=== PATIENT | female | born 1990 | race Caucasian/White ===

== ENCOUNTER 2016-12-19 21:16 | Emergency (ER) | payer SELFPAY ==
[2016-12-19 22:55] LABS: Bilirubin,Urine NEG (Negative); Blood,Urine NEG (Negative); Ketones,Urine NEG (Negative); Leukocyte Esterase,Urine LG (Negative); Mucus,Urine 3+ /HPF; Nitrite,Urine NEG (Negative); Urobilinogen,Urine < 2.0 mg/dL (<2.0)
[2016-12-20] MEDS ORDERED: MOTRIN PO ONE (02:41)
[2016-12-20] MEDS ORDERED: BACTRIM DS PO ONE (02:41)
--- NOTE | 2016-12-20 02:47 | Emergency Department Report ---
HPI - General Chief Complaint: Urogenital-Female Time Seen by Provider: 12/20/16 02:21 - HPI HPI: Patient is a 26-year-old female with no other medical history presents to ED complaining of right-sided flank pain 3 days. Patient states she has had some increased urinary frequency and some nausea. Patient states she takes no medication and is allergic to no medication. She denies vaginal discharge and statesher period was 11/27/2016 She denies fevers/chills/vomiting/abdominal pain/chest pain/shortness of breath/ diarrhea/constipation ED Past Medical Hx - Past Medical History Previous Medical History?: No - Surgical History Past Surgical History?: No - Medications Home Medications: Home Medications Medication Instructions Recorded Confirmed Last Taken Type Ibuprofen [Motrin 800 MG tab] 800 mg PO Q8H #30 tablet 12/20/16 Unknown Rx Sulfamethoxazole/Trimethoprim 1 each PO BID #14 tablet 12/20/16 Unknown Rx [Bactrim DS TAB] ED Review of Systems ROS: Stated complaint: ABD PAIN Other details as noted in HPI Constitutional: denies: chills, fever Eyes: denies: eye pain, eye discharge, vision change ENT: denies: ear pain, throat pain Respiratory: denies: cough, shortness of breath, wheezing Cardiovascular: denies: chest pain, palpitations Endocrine: no symptoms reported Gastrointestinal: denies: abdominal pain, nausea, diarrhea Genitourinary: urgency, frequency, hematuria. denies: dysuria, discharge Musculoskeletal: denies: back pain, joint swelling, arthralgia Skin: denies: rash, lesions Neurological: denies: headache, weakness, paresthesias Psychiatric: denies: anxiety, depression Hematological/Lymphatic: denies: easy bleeding, easy bruising Physical Exam - Physical Exam Vital Signs: Vital Signs 12/19/16 21:25 Temperature 97.2 F L Pulse Rate 81 Respiratory 18 Rate Blood Pressure 149/95 Blood Pressure 149/95 [Left] O2 Sat by Pulse 99 Oximetry Physical Exam: GENERAL: Alert and oriented x3, no apparent distress, Normal Gait, atraumatic. HEAD: Head is normocephalic and a-traumatic. NECK: Supple. Non edematous, No lymphadenopathy or thyromegaly. LUNGS: Symetrical with respiration, No wheezing, no rales or crackles, CTAB. HEART: S1, S2 present, regular rate and rhythm without murmur, no rubs, no gallops. Non tender to palpation ABDOMEN: No organomegaly was noted,Positive bowel sounds, soft, and non- distended. . Nontender to palpation on all Quadrants, BACK: Full range of motion, no spinal tenderness, nontender to palpation. Right sided CVA tenderness. SKIN: Warm and dry, No lesions, No ulceration or induration present. ED Course Vital Signs 12/19/16 21:25 Temperature 97.2 F L Pulse Rate 81 Respiratory 18 Rate Blood Pressure 149/95 Blood Pressure 149/95 [Left] O2 Sat by Pulse 99 Oximetry ED Medical Decision Making - Lab Data Laboratory Last Values Urine Color Yellow (Yellow) 12/19/16 Unknown Urine Turbidity Clear (Clear) 12/19/16 Unknown Urine pH 5.0 (5.0-7.0) 12/19/16 Unknown Ur Specific [place] 1.027 (1.003-1.030) 12/19/16 Unknown Urine Protein 100 mg/dl mg/dL (Negative) 12/19/16 Unknown Urine Glucose (UA) Neg mg/dL (Negative) 12/19/16 Unknown Urine Ketones Neg mg/dL (Negative) 12/19/16 Unknown Urine Blood Neg (Negative) 12/19/16 Unknown Urine Nitrite Neg (Negative) 12/19/16 Unknown Ur Reducing Substances Not Reportable 12/19/16 Unknown Urine Bilirubin Neg (Negative) 12/19/16 Unknown Urine Ictotest Not Reportable 12/19/16 Unknown Urine Urobilinogen < 2.0 mg/dL (<2.0) 12/19/16 Unknown Ur Leukocyte Esterase Lg (Negative) 12/19/16 Unknown Urine WBC (Auto) 5.0 /HPF (0.0-6.0) 12/19/16 Unknown Urine RBC (Auto) 4.0 /HPF (0.0-6.0) 12/19/16 Unknown U Epithel Cells (Auto) 19.0 /HPF (0-13.0) H 12/19/16 Unknown Hyaline Casts 1 /LPF 12/19/16 Unknown Urine Mucus 3+ /HPF 12/19/16 Unknown Urine HCG, Qual Negative (Negative) 12/19/16 Unknown - Medical Decision Making 26 year old female presents with urinary tract infection ED course following urinalysis positive for bacteria, urine test negative Discussed findings with the patient. Patient received one dose of antibiotic and Motrin here in ED Discussed with patient to continue taking antibiotics as prescribed. Vital signs are normal patient is in no acute distress. Critical care attestation.: If time is entered above; I have spent that time in minutes in the direct care of this critically ill patient, excluding procedure time. ED Disposition Clinical Impression: UTI (urinary tract infection) Qualifiers: Urinary tract infection type: acute cystitis Hematuria presence: with hematuria Qualified Code(s): N30.01 - Acute cystitis with hematuria Disposition: TO HOME OR SELFCARE Is pt being admited?: No Does the pt Need Aspirin: No Condition: Stable Instructions: Urinary Tract Infection in Women (ED), Dysuria (ED) Additional Instructions: Take medication as prescribed. Symptoms worsen or new symptoms arise return to ED. Prescriptions: Ibuprofen [Motrin 800 MG tab] 800 mg PO Q8H #30 tablet Sulfamethoxazole/Trimethoprim [Bactrim DS TAB] 1 each PO BID #14 tablet Referrals: PRIMARY CARE, [Primary Care Provider] - 3-5 Days [facility] [Outside] - 3-5 Days [facility] [Outside] - 3-5 Days [facility] [Outside] - 3-5 Days [facility] [Outside] - 3-5 Days Forms: Accompanied Note, Work/School Release Form(ED) Time of Disposition: 02:53
[2016-12-20 03:15] VITALS: BP 142/91
== END 2016-12-20 03:16 | disposition home or self-care (01) ==
LOC: ED 21:16
DX: N39.0 Urinary tract infection, site not specified (principal)
CPT/HCPCS: 81001; 81025; 87076; 87086; 87186; 99283

== ENCOUNTER 2016-12-24 08:13 | Emergency (ER) | payer SELFPAY ==
[2016-12-24 08:48] LABS: Basophils % (Auto) 0.6 % (0.0-1.8); Eosinophils % (Auto) 3.5 % (0.0-4.3); Hematocrit 35.2 % (30.3-42.9); Hemoglobin 11.1 gm/dl (10.1-14.3); Mean Corpuscular HGB Conc 32 % (30-34); Mean Corpuscular Volume 75 fl (79-97); Platelet Count 311 K/mm3 (140-440); Red Blood Count 4.67 M/mm3 (3.65-5.03); Red Cell Distribution Width 14.7 % (13.2-15.2); White Blood Count 8.3 K/mm3 (4.5-11.0)
[2016-12-24 08:49] LABS: Mean Corpuscular Hemoglobin 24 pg (28-32)
[2016-12-24 09:12] LABS: Alanine Aminotransferase 32 units/L (7-56); Albumin 3.7 g/dL (3.9-5); Alkaline Phosphatase 69 units/L (35-129); Anion Gap 19 mmol/L; BUN/Creatinine Ratio 15; Blood Urea Nitrogen 12 mg/dL (7-17); Calcium 8.5 mg/dL (8.4-10.2); Carbon Dioxide 21 mmol/L (22-30); Chloride 99.9 mmol/L (98-107); Glucose 96 mg/dL (65-100); Lipase 20 units/L (13-60); Potassium 4.4 mmol/L (3.6-5.0); Sodium 135 mmol/L (137-145); Total Protein 7.3 g/dL (6.3-8.2)
--- NOTE | 2016-12-24 09:26 | Emergency Department Report ---
Chief Complaint: Abdominal Pain Stated Complaint: UTI Time Seen by Provider: 12/24/16 09:10 - [facility] History of Present Illness: Patient is a 26-year-old female who presents to ED complaining of right upper quadrant intermittent, aching, nonradiating, 7 out of 10 intensity pain 10 days. She denies fever/chills/nausea/vomiting/chest pain/shortness of breath - ROS Review of Systems: As noted in HPI - Exam Vital Signs: Vital Signs 12/24/16 08:15 Temperature 97.4 F L Pulse Rate 88 Respiratory 18 Rate Blood Pressure 139/82 O2 Sat by Pulse 98 Oximetry Physical Exam: GENERAL: Alert and oriented x3, no apparent distress, Normal Gait, atraumatic. ABDOMEN: No organomegaly was noted,Positive bowel sounds, soft, and non- distended. . RUQ tender to palpation, nontender on all other Quadrants, NO CVA tenderness. BACK: Full range of motion, no spinal tenderness, nontender to palpation. MSE screening note: Focused history and physical exam performed. Due to findings the following was ordered: ED Medical Decision Making - Lab Data Result diagrams: 12/24/16 08:34 12/24/16 08:34 - Medical Decision Making 26-year-old female in no acute distress CBC, CMP within normal limits, urinalysis pending, ultrasound of the abdomen ordered. Patient awaiting to be seen by ED physician. ED Disposition for MSE Condition: Stable Instructions: Abdominal Pain (ED) Referrals: PRIMARY CARE, [Primary Care Provider] - 3-5 Days
[2016-12-24 09:36] LABS: Bilirubin,Urine NEG (Negative); Blood,Urine NEG (Negative); Ketones,Urine NEG (Negative); Leukocyte Esterase,Urine NEG (Negative); Mucus,Urine FEW /HPF; Nitrite,Urine NEG (Negative); Protein,Urine <15 mg/dL mg/dL (Negative); Urobilinogen,Urine < 2.0 mg/dL (<2.0)
--- NOTE | 2016-12-24 10:17 | Ultrasound Report ---
Complete abdominal ultrasound: Right upper quadrant pain. Images of the liver demonstrate a generally normal sized liver. In the left lobe however there is a large irregular area of decreased echogenicity with moderately well-defined borders measuring approximately 4 x 7 cm. The adjacent liver appears slightly increased in echogenicity. A similar area of diminished echogenicity is identified in the right lobe interposed between the gallbladder and the right kidney also measuring approximately 4 cm. The spleen is somewhat elongated having a maximum dimension of 13 cm and the overall volume may be slightly increased. No focal findings. The body and head of the pancreas are unremarkable but the tail was not well-visualized. The gallbladder contains echodensities with shadowing consistent with calculi. There is no thickening of the wall and no pericholecystic fluid. The CBD diameter is 5 mm. The right renal length is 12.7 cm and the left renal length is 12.4 cm. Both kidneys appear echogenically unremarkable. The proximal abdominal aorta measures 1.9 cm in diameter. Comparison is made to a prior ultrasound and CT obtained in 2010. The hypoechogenicity in the left lobe of the liver appears generally the same on prior ultrasound. On the CT this area may have slightly increased enhancement compared to the adjacent liver. Gallstones were also noted on prior ultrasound. The spleen appears slightly enlarged on CT scan. Impressions: 1. Chronic cholelithiasis with no findings to indicate cholecystitis. 2. The hepatic findings may represent fatty sparing. 3. Nonspecific mild chronic enlargement of the spleen.
[2016-12-24] MEDS ORDERED: TORADOL IM ONE (11:08)
[2016-12-24] MEDS ORDERED: NORCO 5/325 PO ONE (11:08)
--- NOTE | 2016-12-24 11:33 | Emergency Department Report ---
ED Abdominal Pain HPI - General Chief Complaint: Abdominal Pain Stated Complaint: UTI Time Seen by Provider: 12/24/16 09:10 Source: patient Mode of arrival: Ambulatory Limitations: No Limitations - History of Present Illness Initial Comments: 26 year old female with no paast medical or surgical history. Right upper quadrant pain 10 days. Here on the 10th and seen in [facility]. Diagnosed with UTI and was placed on antibiotic MD Complaint: abdominal pain -: Gradual, days(s) (10) Location: RUQ Radiation: back Migration to: no migration Severity scale (0 -10): 6 Quality: other (unable to qualify) Consistency: constant Improves With: nothing Worsens With: other (palpation) Context: other (none) Associated Symptoms: denies: nausea, vomiting, diarrhea, fever - Related Data Previous Rx's Medication Instructions Recorded Last Taken Type Ibuprofen [Motrin 800 MG tab] 800 mg PO Q8H #30 tablet 12/20/16 Unknown Rx Sulfamethoxazole/Trimethoprim 1 each PO BID #14 tablet 12/20/16 Unknown Rx [Bactrim DS TAB] HYDROcodone/APAP 5-325 [[place] 1 each PO Q6HR PRN #20 tablet 12/24/16 Unknown Rx 5/325] Ibuprofen [Motrin] 800 mg PO Q8HR PRN #30 tablet 12/24/16 Unknown Rx Allergies Allergy/AdvReac Type Severity Reaction Status Date / Time No Known Allergies Allergy Verified 12/02/14 14:39 ED Review of Systems ROS: Stated complaint: UTI Other details as noted in HPI Comment: All other systems reviewed and negative Other: Constitutional: No fevers chills Eyes: No eye pain visual changes ENT: No ear pain or throat pain Neck: Denies pain Respiratory: Denies cough wheezing shortness of breath ND Cardiovascular: Denies chest pain, palpitations, syncope GI: As per HPI : Denies dysuria Musculoskeletal: Denies back pain, joint swelling Skin: Denies rash, lesions, erythema Neurologic: Denies headache, numbness, weakness Psychiatric: Denies suicidal ideation, hallucinations ED Past Medical Hx - Past Medical History Previous Medical History?: No - Surgical History Past Surgical History?: No - Social History Smoking Status: Never Smoker Substance Use Type: None - Medications Home Medications: Home Medications Medication Instructions Recorded Confirmed Last Taken Type Ibuprofen [Motrin 800 MG tab] 800 mg PO Q8H #30 tablet 12/20/16 Unknown Rx Sulfamethoxazole/Trimethoprim 1 each PO BID #14 tablet 12/20/16 Unknown Rx [Bactrim DS TAB] HYDROcodone/APAP 5-325 [[place] 1 each PO Q6HR PRN #20 tablet 12/24/16 Unknown Rx 5/325] Ibuprofen [Motrin] 800 mg PO Q8HR PRN #30 tablet 12/24/16 Unknown Rx ED Physical Exam - General Limitations: No Limitations - Other Other exam information: General: No limitations, patient is alert in no acute distress Head exam: Atraumatic, normocephalic Eyes exam: Normal appearance, pupils equal reactive to light, extraocular movements intact ENT: Moist mucous membrane, normal oropharynx Neck exam: Normal inspection, full range of motion, no meningismus nontender Respiratory exam: Clear to auscultation bilateral, no wheezes, rales, crackles Cardiovascular: Normal rate and rhythm, normal heart sounds Abdomen: Soft, nondistended, ruq tenderness, no rebound or gaurding Extremity: Full range of motion normal inspection no deformity Back: Normal Inspection, full range of motion, no tenderness Neurologic: Alert, oriented x3, cranial nerves intact, no motor or sensory deficit Psychiatric: normal affect, normal mood Skin: Warm, dry, intact ED Course Vital Signs 12/24/16 12/24/16 12/24/16 08:15 10:51 11:00 Temperature 97.4 F L Pulse Rate 88 75 Respiratory 18 17 Rate Blood Pressure 139/82 135/69 126/78 O2 Sat by Pulse 98 100 Oximetry 12/24/16 11:30 Temperature Pulse Rate 76 Respiratory 23 Rate Blood Pressure 135/69 O2 Sat by Pulse 100 Oximetry - Reevaluation(s) Reevaluation #1: 12/24/16 11:44 Patient treated with Toradol and [place] 12/24/16 12:09 pt feels better ED Medical Decision Making - Lab Data Result diagrams: 12/24/16 08:34 12/24/16 08:34 Lab Results 12/24/16 12/24/16 12/24/16 Range/Units 08:34 08:34 09:25 WBC 8.3 (4.5-11.0) K/mm3 RBC 4.67 (3.65-5.03) M/mm3 Hgb 11.1 (10.1-14.3) gm/dl Hct 35.2 (30.3-42.9) % MCV 75 L (79-97) fl MCH 24 L (28-32) pg MCHC 32 (30-34) % RDW 14.7 (13.2-15.2) % Plt Count 311 (140-440) K/mm3 Lymph % (Auto) 19.4 (13.4-35.0) % [place] % (Auto) 6.7 (0.0-7.3) % Eos % (Auto) 3.5 (0.0-4.3) % Baso % (Auto) 0.6 (0.0-1.8) % Lymph # 1.6 (1.2-5.4) K/mm3 [place] # 0.6 (0.0-0.8) K/mm3 Eos # 0.3 (0.0-0.4) K/mm3 Baso # 0.0 (0.0-0.1) K/mm3 Seg Neutrophils % 69.8 (40.0-70.0) % Seg Neutrophils # 5.8 (1.8-7.7) K/mm3 Sodium 135 L (137-145) mmol/L Potassium 4.4 (3.6-5.0) mmol/L Chloride 99.9 (98-107) mmol/L Carbon Dioxide 21 L (22-30) mmol/L Anion Gap 19 mmol/L BUN 12 (7-17) mg/dL Creatinine 0.8 (0.7-1.2) mg/dL Estimated GFR > 60 ml/min BUN/Creatinine Ratio 15 % Glucose 96 (65-100) mg/dL Calcium 8.5 (8.4-10.2) mg/dL Total Bilirubin 0.30 (0.1-1.2) mg/dL AST 20 (5-40) units/L ALT 32 (7-56) units/L Alkaline Phosphatase 69 (35-129) units/L Total Protein 7.3 (6.3-8.2) g/dL Albumin 3.7 L (3.9-5) g/dL Albumin/Globulin Ratio 1.0 % Lipase 20 (13-60) units/L Urine Color Yellow (Yellow) Urine Turbidity Clear (Clear) Urine pH 6.0 (5.0-7.0) Ur Specific [place] 1.014 (1.003-1.030) Urine Protein <15 mg/dl (Negative) mg/dL Urine Glucose (UA) Neg (Negative) mg/dL Urine Ketones Neg (Negative) mg/dL Urine Blood Neg (Negative) Urine Nitrite Neg (Negative) Urine Bilirubin Neg (Negative) Urine Urobilinogen < 2.0 (<2.0) mg/dL Ur Leukocyte Esterase Neg (Negative) Urine WBC (Auto) 1.0 (0.0-6.0) /HPF Urine RBC (Auto) 3.0 (0.0-6.0) /HPF U Epithel Cells (Auto) 2.0 (0-13.0) /HPF Urine Mucus Few /HPF Urine HCG, Qual (Negative) 12/24/16 Range/Units 09:25 WBC (4.5-11.0) K/mm3 RBC (3.65-5.03) M/mm3 Hgb (10.1-14.3) gm/dl Hct (30.3-42.9) % MCV (79-97) fl MCH (28-32) pg MCHC (30-34) % RDW (13.2-15.2) % Plt Count (140-440) K/mm3 Lymph % (Auto) (13.4-35.0) % [place] % (Auto) (0.0-7.3) % Eos % (Auto) (0.0-4.3) % Baso % (Auto) (0.0-1.8) % Lymph # (1.2-5.4) K/mm3 [place] # (0.0-0.8) K/mm3 Eos # (0.0-0.4) K/mm3 Baso # (0.0-0.1) K/mm3 Seg Neutrophils % (40.0-70.0) % Seg Neutrophils # (1.8-7.7) K/mm3 Sodium (137-145) mmol/L Potassium (3.6-5.0) mmol/L Chloride (98-107) mmol/L Carbon Dioxide (22-30) mmol/L Anion Gap mmol/L BUN (7-17) mg/dL Creatinine (0.7-1.2) mg/dL Estimated GFR ml/min BUN/Creatinine Ratio % Glucose (65-100) mg/dL Calcium (8.4-10.2) mg/dL Total Bilirubin (0.1-1.2) mg/dL AST (5-40) units/L ALT (7-56) units/L Alkaline Phosphatase (35-129) units/L Total Protein (6.3-8.2) g/dL Albumin (3.9-5) g/dL Albumin/Globulin Ratio % Lipase (13-60) units/L Urine Color (Yellow) Urine Turbidity (Clear) Urine pH (5.0-7.0) Ur Specific [place] (1.003-1.030) Urine Protein (Negative) mg/dL Urine Glucose (UA) (Negative) mg/dL Urine Ketones (Negative) mg/dL Urine Blood (Negative) Urine Nitrite (Negative) Urine Bilirubin (Negative) Urine Urobilinogen (<2.0) mg/dL Ur Leukocyte Esterase (Negative) Urine WBC (Auto) (0.0-6.0) /HPF Urine RBC (Auto) (0.0-6.0) /HPF U Epithel Cells (Auto) (0-13.0) /HPF Urine Mucus /HPF Urine HCG, Qual Negative (Negative) - Radiology Data Radiology results: report reviewed (us abd complete: chronic cholelithiasis not cholecysitis. nonspecific chronic enlargement of the spleen) - Medical Decision Making Ultrasound shows chronic cholelithiasis. No cholecystitis or other acute abnormality. Patient will be treated symptomatically and referred to surgery for outpatient management. - Differential Diagnosis uti, renal colic, bilary colic, cholethiasis Critical Care Time: No Critical care attestation.: If time is entered above; I have spent that time in minutes in the direct care of this critically ill patient, excluding procedure time. ED Disposition Clinical Impression: Cholelithiases Disposition: [id number]-01 TO HOME OR SELFCARE Is pt being admited?: No Does the pt Need Aspirin: No Condition: Stable Instructions: Biliary Colic (ED) Additional Instructions: Take the medication as prescribed. Return if symptoms worsen. Follow-up with the surgeon provided to discuss gallbladder removal. Prescriptions: HYDROcodone/APAP 5-325 [[place] 5/325] 1 each PO Q6HR PRN #20 tablet PRN Reason: Pain Ibuprofen [Motrin] 800 mg PO Q8HR PRN #30 tablet PRN Reason: Pain Referrals: BIANCA WILHELM DO [Staff Physician] - 3-5 Days (surgeon) Time of Disposition: 12:09
[2016-12-24 11:41] VITALS: BP 135/69
== END 2016-12-24 12:18 | disposition home or self-care (01) ==
LOC: ED 08:13
DX: K80.20 Calculus of gallbladder without cholecystitis without obstruction (principal)
CPT/HCPCS: 36415; 76700; 80053; 81001; 81025; 83690; 85025; 96372; 99284; J1885